=== PATIENT | male | born 1965 | race Caucasian/White ===

== ENCOUNTER → 2016-12-27 | Outpatient (CLI) | payer BC ==
--- NOTE | 2016-12-28 15:11 | CONS ---
DATE OF SERVICE: 12/27/2016 This patient is a 51-year-old gentleman who has been reevaluated in the sleep center for obstructive sleep apnea/hypopnea syndrome. HISTORY OF PRESENT ILLNESS/SLEEP-WAKE EVALUATION: This patient was diagnosed with obstructive sleep apnea/hypopnea syndrome in 2011. At that time his apnea/ hypopnea index was 14.5 ( ) 25.6. He was started on treatment with CPAP and continued to use his CPAP until the present time. Recently he developed snoring and sleepiness during the day. His [place] Sleepiness Scale increased to 11. His sleep schedule is from 7 p.m. to 4 a.m. on working days and from around 9 p.m. to 5 a.m. on weekends. No problem with falling asleep, although he has a TV set in the bedroom. He sleeps on his back. He wakes up from sleep 3 times, with 2 episodes of nocturia at night. PAST MEDICAL HISTORY: Hypertension. MEDICATION: Lisinopril 20 mg once a day. SOCIAL HISTORY: Positive for smoking in the past. Quit about 30 years ago. Alcohol consumption occasional. REVIEW OF SYSTEMS: No fevers. No double vision. No recent chest pain. No shortness of breath. No abdominal pain. No bleeding episodes. No blood in urine. No seizure episodes. Snoring. Awakenings from sleep. Sleepiness during the day. FAMILY HISTORY: Diabetes mellitus in his dad. PHYSICAL EXAM: The patient is a pleasant 51-year-old gentleman without distress. VITAL SIGNS: Blood pressure 143/86, heart rate 79, respiratory rate 16. Height 5 feet 8 inches. Weight 158. BMI 24.3. Neck 15 inches in circumference. Temperature 98.3. Oxygen saturation at room air 97%. GENERAL: A pleasant patient without distress. HEENT: PERRLA. EOMI. Evaluation of oropharynx showed tongue protrudes midline. Low position of soft palate. NECK: Supple. No JVD. Thyroid is not palpable. LUNGS: Clear to percussion and to auscultation. Good air exchange. No wheezing or rhonchi. HEART: S1, S2 regular. No murmurs, gallops or rubs. ABDOMEN: Soft and non-tender. Bowel sounds are present. No organomegaly appreciated. EXTREMITIES: No clubbing or cyanosis. FLOOR COVERER: Awake, alert and oriented x3. Cranial nerves 2 through 7 are intact. There is no fasciculation or atrophy noted. No focal deficits observed. I checked the patient's CPAP unit. CPAP pressure is 9 cm of water. RAMP is 30 minutes. Apnea/hypopnea index on the machine is 5.6. IMPRESSION: 1. Obstructive sleep apnea/hypopnea syndrome since 2011, for which he is on treatment with CPAP. He recently developed snoring and sleepiness while using his machine. Machine developed some noise. [place] Sleepiness Scale 11. 2. Hypertension. 3. History of gastroesophageal reflux disease. 4. Status post hernia repair. PLAN: 1. Repeat CPAP titration for correction of respiratory abnormalities during sleep and to stop snoring. 2. Sleep hygiene with regular time in bed for at least 8 hours. 3. No driving if feeling any sleepiness. Thank you very much for allowing me to participate in the management of your patient. Sincerely, Harvey Tony. , PhD, FAASM. Diplomat of [place] [employer], Sleep Medicine Board by [place] [employer] [place] [employer] Facilities Technician of [facility] [place] [facility]
== END | disposition home or self-care (01) ==
LOC: SLEEP 14:23
PROVIDERS: ATTEND Internal Medicine
DX: G47.33 Obstructive sleep apnea (adult) (pediatric) (principal); I10 Essential (primary) hypertension; K21.9 Gastro-esophageal reflux disease without esophagitis; Z98.890 Other specified postprocedural states; Z87.891 Personal history of nicotine dependence
CPT/HCPCS: 99211

== ENCOUNTER → 2017-03-14 | Outpatient (CLI) | payer BC ==
--- NOTE | 2017-03-14 17:48 | PN ---
PROGRESS NOTE DATE OF SERVICE: 03/14/2017 This patient is a 51-year-old gentleman who has been followed in the sleep center for treatment of obstructive sleep apnea-hypopnea syndrome. Recently he received his new CPAP unit. According to the patient, he is able to use the equipment successfully without problem every night. When the pressure is low, he still snores, but then when the pressure goes up, he stops snoring. I checked his CPAP unit. Usage is 29/30 nights for more than 4 hours. Fitting of the mask is 99% by the reading from the machine. Pressure is in the range from 6 to 11 cm of water, automatic regimen, but average pressure is 10.8 cm of water. With this regimen, reading of apnea-hypopnea index for the last month is 9.4. [place] Sleepiness Scale today is 8. MEDICATIONS: Lisinopril. PHYSICAL EXAM: Pleasant patient in no distress. VITAL SIGNS: BP 128/86, HR 72, R 16. Weight 157, temperature 98.2, oxygen saturation at room air 97%. HEENT: PERRLA, EOMI. Evaluation of oropharynx showed tongue protrudes midline; low position of soft palate. NECK: Supple. No JVD. Thyroid is not palpable. LUNGS: Clear to percussion and to auscultation. Good air exchange. No wheezing or rhonchi. HEART: S1, S2 irregularly irregular. ABDOMEN: Soft, non-tender. Bowel sounds present. EXTREMITIES: No clubbing or cyanosis. STAMPING DIE TRY OUT WORKER: Awake, alert and oriented x3. Cranial nerves 2 to 7 intact. There is no fasciculation or atrophy noted. No focal deficits observed. IMPRESSION: 1. Obstructive sleep apnea-hypopnea syndrome. The patient demonstrated practically 100% compliance with treatment, benefitting from treatment. 2. Reading from the machine showed slightly increasing apnea-hypopnea index to the mild range, to 9.4. 3. Hypertension. 4. History of gastroesophageal reflux disease. 5. Status post hernia repair. PLAN: 1. I adjusted the CPAP unit up to the pressure in the range of 6 to 13 cm of water. 2. Continue to use CPAP equipment every night. 3. Sleep hygiene with regular time in bed for at least 8 hours. 4. No driving if feeling any sleepiness. 5. I will see patient for a follow-up visit in 3 months. Thank you very much for allowing me to participate in the management of your patient. Sincerely, Harvey Tony MD, PhD, FAASM Diplomat of [place] [employer] [place] [employer] Destination Sign Repairer of [facility] Primrose BRYAN / ALICJA: [id number] /
== END ==
LOC: SLEEP 14:49
PROVIDERS: ATTEND Internal Medicine
DX: G47.33 Obstructive sleep apnea (adult) (pediatric) (principal); I10 Essential (primary) hypertension; K21.9 Gastro-esophageal reflux disease without esophagitis; Z98.890 Other specified postprocedural states; Z79.899 Other long term (current) drug therapy

== ENCOUNTER → 2019-09-08 | Outpatient (CLI) | payer BC ==
--- NOTE | 2019-09-08 08:22 | CT ---
EXAMINATION TYPE: CT sinus wo con DATE OF EXAM: 09/08/2019 COMPARISON: NONE HISTORY: Chronic sinusitis CT DLP: 635 mGycm. Automated Exposure Control for Dose Reduction was Utilized. TECHNIQUE: CT scan of the sinuses is performed without contrast, axial images are obtained, coronal r eformatted images are also reviewed. FINDINGS: There is a nearly rounded mass in the left anterior inferior nasopharynx measuring 1.7 x 1. 4 x 1.6 cm bowing the left inferior nasal turbinate laterally and thinning the cortex of the anterior nasal septum. Primary diagnostic consideration is for mucocele or less likely polyp. Additional poly p versus mucosal retention cyst in the left maxillary sinus measures 1.7 cm. Remainder of the paranas al sinuses are well aerated. The mastoid air cells are also well aerated. External auditory canals are unremarkable. No middle ear cavity fluid seen. Osseous structures are intact. There is minimal rightward nasal septal deviation of the anterior nasal septum. Exam is not optimized for evaluation of the intracranial structures. Or bits are symmetric and unremarkable. Left ostiomeatal complex is obstructed by mucosal thickening foc ally at the infundibulum. Right ostiomeatal complex is patent. No Sanjuana cells or melissa bullosa seen . Frontal recesses are patent. Temporomandibular joints are symmetric and unremarkable. Numerous tonsilloliths incidentally noted within the tonsils. IMPRESSION: 1. Rounded mass in the left anterior-inferior nasopharynx measuring 1.7 cm deviates the inferior nasa l turbinate leftward and thins the cortex as well as both the cortex of the nasal septum. Therefore m ucocele should be considered or less likely polyp. 2. Mucosal retention cyst versus polyp in the left maxillary sinus measuring 1.7 cm. 3. Obstruction of the left ostiomeatal complex by a thin focus of mucosal thickening.
== END | disposition home or self-care (01) ==
LOC: RADCTMAIN 06:51
PROVIDERS: ATTEND Otolaryngology
DX: J34.2 Deviated nasal septum (principal); J34.89 Other specified disorders of nose and nasal sinuses; J39.2 Other diseases of pharynx; J32.9 Chronic sinusitis, unspecified
CPT/HCPCS: 70486

== ENCOUNTER 2021-01-13 10:25 | Day surgery (SDC) | payer BC ==
[~2021-01-13 10:25] MED LIST: LACTATED RINGERS 1,000 ML IV SCH
[2021-01-13 11:44] VITALS: TEMP 98
[2021-01-13] MEDS ORDERED: PROPOFOL 10 MG/ML 20 ML VIAL IV ONE (12:35)
[2021-01-13] MEDS ORDERED: fentaNYL (PF) 50 MCG/ML 2 ML AMP ONE (12:35)
[2021-01-13] MEDS ORDERED: MIDAZOLAM 2 MG/2 ML VIAL ONE (12:35)
--- NOTE | 2021-01-13 12:48 | P.PCN ---
Date of Procedure: 01/13/21 Procedure(s) Performed: BRIEF HISTORY: Patient is a 55-year-old pleasant male scheduled for an elective colonoscopy as a part of evaluation of intermittent rectal bleeding for the last few weeks duration. PROCEDURE PERFORMED: Colonoscopy. PREOPERATIVE DIAGNOSIS: Intermittent rectal bleeding. IV sedation per Anesthesia. PROCEDURE: After informed consent was obtained, the patient, was brought into the endoscopy unit. IV sedation was administered by Anesthesia under continuous monitoring. Digital rectal examination was normal. Initially the Olympus CF-160 flexible video colonoscope was then inserted in the rectum, gradually advanced into the cecum without any difficulty. Careful examination was performed as the scope was gradually being withdrawn. Ileocecal valve and the appendiceal orifice were visualized and appeared normal. Prep was excellent. Mucosa of the cecum, ascending colon, transverse colon, descending colon, sigmoid colon, and rectum appeared normal. Retroflexion was performed in the rectum and monitor hemorrhoids were seen. The patient tolerated the procedure well. IMPRESSION: Normal-appearing colon from rectum to cecum no evidence of colorectal neoplasia . Small internal hemorrhoids Scattered sigmoid diverticulosis RECOMMENDATIONS: Findings of this examination were discussed with the patient as well as his family. He was advised to be a high-fiber diet and take fiber supplements a regular basis. He can have a repeat screening colonoscopy in 10 years.
[2021-01-13 13:46] VITALS: BP 104/62; PULSE 66; RESP 16
== END 2021-01-13 14:15 | disposition home or self-care (01) ==
LOC: ORWHC2ENDO 10:25
PROVIDERS: ATTEND Internal Medicine Gastroenterology
DX: K57.30 Diverticulosis of large intestine without perforation or abscess without bleeding (principal); K64.8 Other hemorrhoids; K62.5 Hemorrhage of anus and rectum; I10 Essential (primary) hypertension; E78.5 Hyperlipidemia, unspecified; K21.9 Gastro-esophageal reflux disease without esophagitis; Z79.899 Other long term (current) drug therapy
CPT/HCPCS: 45378; J2250; J3010; J2704

== ENCOUNTER 2022-01-07 09:19 | Emergency (ER) | payer BC ==
[2022-01-07 09:50] VITALS: PULSE 79; RESP 18; TEMP 98.4
[2022-01-07] MEDS ORDERED: LIDOCAINE VISCOUS 2% 15 ML CUP MUCOUS MEM ONE (10:30)
[2022-01-07] MEDS ORDERED: KETOROLAC 15 MG/ML 1 ML VIAL IM STA (10:33)
--- NOTE | 2022-01-07 10:34 | ED ---
General Adult HPI - General Chief complaint: Abdominal Pain Stated complaint: Hemorrhoids Time Seen by Provider: 01/07/22 09:51 Source: patient Mode of arrival: ambulatory Limitations: no limitations - History of Present Illness Initial comments: Patient is a 56-year-old male presenting with chief complaint of hemorrhoids. Patient states he has a history of internal hemorrhoids, today he felt the hemorrhoids "popped out". He admits to pain that makes him unable to sit down and pain with bowel movements. He denies any abdominal pain, diarrhea, cons tipation, fever, chills, nausea, vomiting. - Related Data Home Medications Medication Instructions Recorded Confirmed Ibuprofen [Advil] 200 - 400 mg PO Q6H PRN 01/12/21 01/12/21 Losartan [Cozaar] 50 mg PO QAM 01/12/21 01/13/21 Omeprazole 20 mg PO DAILY PRN 01/12/21 01/13/21 Previous Rx's Medication Instructions Recorded Hydrocortisone Suppository 25 mg RECTAL DAILY PRN #20 01/07/22 [Anusol-Hc] suppositor Hydrocortisone Suppository 25 mg RECTAL DAILY PRN #20 01/07/22 [Anusol-Hc] suppositor Allergies Allergy/AdvReac Type Severity Reaction Status Date / Time No Known Allergies Allergy Verified 01/13/21 11:42 Review of Systems ROS Statement: Those systems with pertinent positive or pertinent negative responses have been documented in the HPI. ROS Other: All systems not noted in ROS Statement are negative. Past Medical History Past Medical History: GERD/Reflux, Hypertension, Sleep Apnea/CPAP/BIPAP Additional Past Medical History / Comment(s): DOES NOT USE CPAP History of Any Multi-Drug Resistant Organisms: None Reported Past Surgical History: Hernia Repair Additional Past Surgical History / Comment(s): SINUS SURGERY ([facility]). BILATERAL ING HERNIA. Past Anesthesia/Blood Transfusion Reactions: No Reported Reaction Past Psychological History: No Psychological Hx Reported Smoking Status: Former smoker Past Alcohol Use History: Daily Past Drug Use History: None Reported General Exam Limitations: no limitations General appearance: alert, in no apparent distress Head exam: Present: atraumatic, normocephalic, normal inspection Eye exam: Present: normal appearance, EOMI. Absent: scleral icterus, periorbital swelling Neck exam: Present: normal inspection Rectal exam: Present: hemorrhoids Neurological exam: Present: alert, oriented X3, CN II-XII intact Psychiatric exam: Present: normal affect, normal mood Skin exam: Present: warm, dry, intact, normal color. Absent: rash Course Vital Signs 01/07/22 09:45 Temperature 98.4 F Pulse Rate 79 Respiratory 18 Rate Blood Pressure 158/108 O2 Sat by Pulse 97 Oximetry Medical Decision Making - Medical Decision Making Patient is a 56-year-old male presenting with chief complaint of hemorrhoids. Patient states that he has a history of internal hemorrhoids and today he felt them "pop out". Patient admits to pain with sitting and bleeding. On examination there are 4 large external hemorrhoids, none appear to be thrombosed. They're not reducible. Patient was instructed on supportive treatment with high-fiber diet, daily MiraLAX, daily Metamucil, sits baths, and he is prescribed Anusol suppositories. He is instructed to follow-up with surgery and his PCP. Report back to ER if any new or worsening symptoms. Discussed return parameters and answered all questions. Patient conveyed verbal understanding and agreed to the plan. I discussed this case with my attending Dr. Murillo. Disposition Clinical Impression: Hemorrhoids Disposition: HOME SELF-CARE Condition: Good Instructions (If sedation given, give patient instructions): Hemorrhoids (ED) Additional Instructions: Follow-up with PCP and surgeon for definitive treatment. Take Motrin and Tylenol as needed for pain control. Utilize sitz baths as needed. Use suppositories as instructed. Continue taking Metamucil, add MiraLAX into your daily routine. Stay well-hydrated and eat a high-fiber diet. Prescriptions: Hydrocortisone Suppository [Anusol-Hc] 25 mg RECTAL DAILY PRN #20 suppositor PRN Reason: Pain Hydrocortisone Suppository [Anusol-Hc] 25 mg RECTAL DAILY PRN #20 suppositor PRN Reason: Pain Is patient prescribed a controlled substance at d/c from ED?: No Referrals: Adenike Hernandez DO [Primary Care Provider] - 1-2 days Debbie Sebastian MD [STAFF PHYSICIAN] - 1-2 days Time of Disposition: 11:10
[2022-01-07] MEDS ORDERED: HYDROCORTISONE SUPPOSITORY 25 MG SUPP RECTAL STA (11:11)
[2022-01-07 12:49] VITALS: BP 137/89
== END 2022-01-07 12:49 | disposition home or self-care (01) ==
LOC: EC 09:19
DX: K64.9 Unspecified hemorrhoids (principal); I10 Essential (primary) hypertension; K21.9 Gastro-esophageal reflux disease without esophagitis; Z87.891 Personal history of nicotine dependence; Z79.899 Other long term (current) drug therapy
CPT/HCPCS: 99282; 96372; J1885